=== PATIENT | male | born 1990 | race Caucasian/White ===

== ENCOUNTER 2024-12-31 11:58 | Emergency (ER) | payer SELFPAY ==
--- OUTSIDE RECORDS SUMMARY | 2024-12-30 18:12 | XMS_ITS | Encounter Summary ---
Author Organization [facility] Health Address [address] [place] [address] Care Team Providers Care Real Estate Agent Name Role Phone Provider, No Pcp Primary Care Provider Unavailab le Reason for Visit * Reason Comments SUICIDAL Pt arrives via EMS. EMS states [place] picked up. The pt states he wants to kill himself by cutting his wrist. The pt has a shuffled appearance Encounter Details Date Type Department Care Team (Late Contact Info) Description 12/30/2024 6:12 PM CDT - 12/31/2024 12:14 AM T Emergency [facility] EMERGENCY DEPARTMENT [address] [place] [phone] Maite De La Paz MD [address] [place] [address] [place] [address] Encounter for medication management; Tachycardia; Suicidal ideation; Drug use Discharge Disposition: Home or Self Care Social History Tobacco Use Types Packs/Day Years Used Date Smoking Tobacco: Every Day Cigarettes 1 0.1 Started: 12/2024 Smokeless Tobacco: Never Alcohol Use Standard Drinks/Week Comments Not Currently 0 (1 standard drink = 0.6 oz pur e alcohol) AUDIT-C Answer Date Recorded Q1: How often do you have a drink containing alc ohol? Monthly or less 12/18/2024 Q2: How many drinks containi ng alcohol do you have on a typical day when you are drinking? 1 or 2 12/18/2024 Q3: How often do you have si x or more drinks on one occasion? Less than monthly 12/18/2024 Overall Financial Resource Strain (CARDIA) Answe r Date Recorded How hard is it for you to pa y for the very basics like food, housing, medical care, and heating? Not hard at all 12/18/2024 PHQ-2 Answer Date Recorded Patient Health Questionnaire-2 Score 6 12/18/2024 [facility] - Occupational Stress Questionnaire Answer Date Recorded Do you feel stress - tense, restless, nervous, or anxious, or unable to sleep at night because your mind is troubled all the time - these days? Not at all 12/18/2024 Hunger Vital Sign Answer Date Recorded Within the past 12 months, y ou worried that your food would run out before you got the money to buy more. Never true 12/19/19 25 Within the past 12 months, t he food you bought just didn't last and you didn't have money to get more. Never true 12/18/2024 PRAPARE - Transportation Answer Date Re corded In the past 12 months, has l ack of transportation kept you from medical appointments or from getting medications? No 12/09 In the past 12 months, has l ack of transportation kept you from meetings, work, or from getting things needed for daily living? No 12/18/2024 Housing Stability Vital Sign Answer Lalo e Recorded In the last 12 months, was t here a time when you were not able to pay the mortgage or rent on time? No 12/18/2024 In the past 12 months, how m any times have you moved where you were living? 1 12/18/2024 At any time in the past 12 m [facility], were you homeless or living in a [facility] (including now)? Yes 12/18/2024 Sex and Gender Information Value Date Recorded Sex Assigned at Not on file Legal Sex Male 12:18 AM CDT Gender Identity Not on file Sexual Orientation Not on file documented as of this encounter Last Filed Vital Signs Vital Sign Reading Time Taken Comments Blood Pressure 115/90 12/30/2024 6:08 PM CDT Pulse 116 12/30/2024 6:57 PM CDT Temperature 36.6 C (97.9 F) 12/30/2024 6:57 PM CDT Respiratory Rate 18 12/30/2024 6:08 PM CDT Oxygen Saturation 99% 12/30/2024 6:08 PM CDT Inhaled Oxygen Concentration - - Weight 62.6 kg (138 lb) 12/30/2024 6:08 PM CDT Height 170.2 cm (5' 7) 12/30/2024 6:08 PM CDT Body Mass Index 21.61 12/30/2024 6:08 PM CDT documented in this encounter Functional Status * Is person deaf or have serious hearing difficulty? Answer Date of Assessment Author No 12/18/2024 9:00 AM CDT Daxa Wan RN * Is person blind or have serious difficulty seeing? Answer Date of Assessment Author No 12/18/2024 9:00 AM CDT Daxa Wan RN * Does person have serious difficulty walking/climbing stairs? Answer Date of Assessment Author No 12/18/2024 9:00 AM JINAT Daxa Wan RN * Does person have difficulty dressing/bathing? Answer Date of Assessment Author No 12/18/2024 9:00 AM JINAT Daxa Wan RN * Does person have difficulty doing errands alone? Answer Date of Assessment Author No 12/18/2024 9:00 AM CDT Daxa Wan RN documented as of this encounter Mental Status * Does person have difficulty concentrating/remembering/making decisions? Answer Entry Date Author No 12/18/2024 9:00 AM Daxa Schultz RN documented in this encounter Discharge Instructions * Discharge Instructions* Radha Grimaldo DO - 12/30/2024 9:47 PM CDT You were seen in the ER today for suicidal ideation. Please follow recommendations from social workfor [facility] availability. Please return to the ER if you are having any new or worsening symptoms that you were concerned for. documented in this encounter Medications at Time of Discharge ARIPiprazole (Abilify) 15 MG tabletIndications :Bipolar Mood Disorder Take 1 (one) tablet by mouth once daily Reasons: Manic-Depression 30 tablet 1 12/21/2024 4:29 PM CDT 12/22/2024 mirtazapine (Remeron) 15 MG tabletIndications :Depressed Mood Take 1 (one) tablet by mouth at bedtime Reasons: Lowered Mood 30 tablet 1 12/21/2024 4:29 PM CDT 12/21/2024 nicotine polacrilex (Nicorette) 2 MG gumIndications:Ni cotine Dependence Take 1 (one) Each by mouth every 2 hours as needed for Smoking Cessation Reasons: Nicotine Addiction 50 Each 1 12/21/2024 4:29 PM CDT 12/21/2024 rivaroxaban (Xarelto) 20 MG tabletIndications :Deep Vein Thrombosis Prophylaxis Take 1 (one) tablet by mouth daily with dinner Reasons: Treatment to Prevent Deep Vein Thrombosis 30 tablet 1 12/21/2024 4:29 PM CDT 12/21/2024 documented as of this encounter Progress Notes * Bala Roman MD - 12/30/2024 9:39 PM CDT ID: Gualberto Herrmann is a 34 year old male whom is with PMHx of blood clots and a past psychiatric history of Methamphetamine use disorder and Cannabis use disorder, moderate and reported Bipolar I disorder with depression who is admitted to the ED on 12/30/24 for SI. UDS was pos for Cocaine and Cannabinoids. Psychiatric Diagnoses: Unspecified depressive disorder Methamphetamine use disorder Cannabis use disorder Plan: Disposition/legal: There is no psychiatric contraindication to discharge. Legal status is voluntary. Psychiatric Medications: Scheduled Psych Meds: Continue home medications Psych PRNs we recommend while admitted at [facility]: For anxiety: Atarax 25 mg q6h prn Labs: None Precautions: None 5. Psychosocial needs: We greatly appreciate social work's support with [facility] resources , substance use resources and discharge plan. I have discussed this case with my attending physician, Dr. Castellanos, who agrees with the assessment and plan. Signed: Bala Roman MD 12/30/2024 9:39 PM documented in this encounter H&P Notes * Bala Roman MD - 12/30/2024 9:18 PM CDT [facility] Psychiatry History and Physical Name: Gualberto Herrmann Age: [age] year old Date of : 1990 Location: Emergency Department Reason for Consult: Suicidal Ideation with plan to cut his wrists Level of consult: One-time consult to assist in determining a diagnosis and to recommend an appropriate treatment plan. Chief Complaint: I feel really depressed for a few hours Sources: patient (reliable), chart HISTORY OF PRESENT ILLNESS: Gualberto Herrmann is a 34 year old White male, who is homeless, unemployed, and single with a reported past psychiatric history of Bipolar disorder, Cannabis Use Disorder, and Stimulant Use Disorder and a past medical history of deep venous thrombosis. Psychiatry was consulted for Suicidal Ideation with plan. On day of admission/in the ED; UDS +cannabis, +cocaine; EtOH neg. Vitals 116 tachycardia. Lab results are notable for BUN 28, BUN/creatinine 35. On interview, he states that he snorted cocaine a few hours ago, feeling really depressed for a fewhours, and suicidal ideation with a plan to cut his wrist. He has been loneliness, hiking for 4 years, visited most of the [facility], starting from [place]. He mostly likes [place] due to architectures. His sleep and appetite are good. Energy level is okay. According to him, he has had 5 psychiatric hospitalizations, and he is currently on Aripiprazole 5 mg and Fluoxetine 20 mg once daily. As records, he was last hospitalized with similar symptoms in [facility] between December 18 and 2024. When asked why he was discharged after 4 days of admission, he replied that he felt better, then he was discharged. He was discharged with Mirtazapine 15 mg and Aripiprazole 15 mg once daily. Before this hospitalization, he also applied to [facility] for admission on the same day. Patient endorsed snorting cocaine a few hours ago, feeling depressed for a few hours, and suicidal ideation with a plan to cut his wrist. Duringthe interview, he is calm and comfortable. He is alert, awake, and oriented to person, place, and date. He explains which place he likes most and why he likes it more with a smile and sometimes laughing. He states that he has no place to live and needs to stay in a good place where he can be safe. It gives the impression that he wants to live in a better and safer place than contemplating suicide, with his confirmation. He agreed that the high school social science teacher would find a [facility] place for him to stay. When asked what he would like to do after discharge, he replies that he wants to go to [place]. Denies anhedonia, sleep and appetite problems, low energy and guilty feelings. He has a history of DVT. He had 3 DVT episodes. First DVT episode was in left leg 5 years ago, second in each lung 3 years ago, and third in right arm 2 years ago. Outpatient Medication list: Medications[1] Past Psychiatric History: Previous Diagnosis: reported Bipolar disorder, Cannabis Use Disorder, and Stimulant Use Disorder (methamphetamine) Psychiatric Hospitalization: Most recent: Last hospitalization with similar symptoms in [facility] between December 18 and 2024. Reason: SI Number of Hospitalizations: 5, last discharge on Previous Suicide Attempts: 1 Most recent: once in back high school, probably 20 years ago Details: to cut wrist Number of attempts: 1 Outpatient Psychiatrist/Therapist: Denies Prior Medication Trials: Quetiapine at night, gets benefit for sleep. Haloperidol +allergy Social History: Living Situation: homeless, hiking for 4 years Marriage/ Relationship History: single Children:none Employment History: not employed, worked many years ago for 5 years in his 18 years old Educational History: some college Legal History: Denies History of Trauma? Denies Substance Use History: Tobacco: 1 ppd for 4 years EtOH: endorses sometimes, he states that he drank alcohol last month Illicit Drugs: cocaine, lastly snorted this evening a few hours ago; marijuana, lastly used a few days ago Family Psychiatric History: Suicide: as per him, mother's brother shot himself Past Medical History: Past Medical History[2] Family Medical History: Family History[3] Review of Systems: (positive in Bold) Constitutional: Did not voice fevers. Eyes: Did not voice visual loss Ears, nose, mouth, throat, and face: Did not voice hearing loss Respiratory: Did not voice acute cough Cardiovascular: Did not voice palpitations Gastrointestinal: Did not voice vomiting Genitourinary: Did not voice dysuria Integument/breast: Did not voice rash Musculoskeletal: Did not voice muscle weakness Neurological: Did not voice headaches PHYSICAL EXAM: Vitals: Patient Vitals for the past 6 hrs: Temp Pulse Resp BP 12/30/24 1857 97.9 ??F (36.6 ??C) (!) 116 -- -- 12/30/24 1808 (!) 100.3 ??F (37.9 ??C) (!) 145 18 115/90 General appearance: alert, cooperative, no distress Head: Normocephalic, without obvious abnormality, atraumatic Neck: No masses, no thyromegaly, normal range of motion Extremities: extremities normal, atraumatic, no cyanosis or edema Skin: Skin color, texture, turgor normal. No rashes or lesions Cranial Nerves: I have determined that a complete Cranial Nerve exam is indicated? No Mental Status Exam: Appearance: White male, appears stated age, average build, skin sunburn Eye Contact: good Behavior: Pleasant and cooperative Speech: Normal rate and prosody Language: Normal, no delays Psychomotor: no agitation and no retardation and no agitation and no retardation Mood: depressed Affect: full range, smiles and sometimes laughes Thought Process: linear and logical, associations intact Thought Content: denies suicidal ideation, denies homicidal ideation and does not endorse delusional content Perception: denies hallucinations, was not reacting to internal stimuli Fund of Knowledge: Below average Insight: fair Judgment: good Cognitive Functions: Cognition: oriented to person, place and time Concentration: does attend to the interview Memory: recent and remote memory intact Gait: unable to assess, patient sitting MSK: Normal muscle tone Data Review: Labs: TFT: Recent Labs Component Name 12/20/24 0637 TSH 2.156 A1c: Recent Labs Component Name 12/20/24 0637 HGBA1C 5.4 EAG 108 Lipid: Recent Labs Component Name 12/20/24 0637 CHOL 179 TRIG 52 HDL 59 LDLCALC 110 BAL: Recent Labs Component Name 12/30/24 1843 ETOH <10 ETHANOLCALC <0.010 ASSESSMENT: Gualberto Herrmann is a 34 year old White male, who is homeless, unemployed, and single with a reported past psychiatric history of Bipolar disorder, Cannabis Use Disorder, and Stimulant Use Disorder and a past medical history of deep venous thrombosis who presented on 12/30/2024 with suicidal ideationwith plan. BAL negative, UDS + Cannabinoids, + Cocaine. Based on our clinical presentation, exam findings, review of chart it appears that patient has ongoing cocaine and cannabis use disorders. According to him, he has had 5 psychiatric hospitalizations,and he is currently on Aripiprazole 5 mg and Fluoxetine 20 mg once daily. As records, he was last hospitalized with similar symptoms in [facility] between December 18 and 2024. When asked why he was discharged after 4 days of admission, he replied that he felt better, then he was discharged. He was discharged with Mirtazapine 15 mg and Aripiprazole 15 mg once daily. Before this hospitalization, he also applied to [facility] for admission on the same day. Patient endorsed snorting cocaine a few hours ago, feeling depressed for a few hours, and suicidal ideation with a plan to cut his wrist. During the interview, he is calm and comfortable. He is alert, awake, and oriented to person, place, and date. He explains which place he likes most and why he likes it more with a smile and sometimes laughing. He states that he has no place to live and needs to stayin a good place where he can be safe. It gives the impression that he wants to live in a better andsafer place than contemplating suicide, with his confirmation. He agreed that the high school social science teacher would find a [facility] place for him to stay. When asked what he would like to do after discharge, he replies that he wants to go to [place]. Denies anhedonia, sleep and appetite problems, low energy and guilty feelings. His social history, including homelessness, no social support, and less education, is also likely contributing to the severity of his substance use as well. The recommendations and plan is as follows: Lethality: Short term risk of suicide- low Acute Risk factors: poor coping strategies and current substance abuse Chronic Risk factors:male gender and homelessness Protective factors: forward thinking, hopefulness, help seeking, resources/ability to seek out care, no active symptoms of psychosis, and no active symptoms of robert Short term risk of harm to others- low Acute Risk factors: Physical capability Chronic Risk factors: none Protective factors: no current aggression Overall RISK: low Based on review of the [place] Screening ,review of the medical record including nursing and executive secretary social welfare documentation, in my clinical judgment, the patient's suicidality has decreased Clinical interventions being applied to mitigate the suicidal risk no precautions needed I have seen and reviewed the available and relevant vital signs, labs, imaging, procedures, EKGs, allergies, and medications. Diagnosis: F14.14 (Cocaine abuse with cocaine-induced mood disorder) mild exacerbation F12.20 Cannabis Use Disorder, moderate PLAN: Psychiatric: 1. Cannabis Use Disorder, moderate and Stimulant Use Disorder, moderate, Cocaine abuse with cocaine-induced mood disorder Medical: Defer to primary, History of deep venous thrombosis, currently on Rivaroxaban 20 mg Psychosocial Needs: SW to kindly assist with discharge planning, [facility] resources, and substance use resources. Strengths/Limitations: Patient's Strengths and Assets: Help-seeking and Willingness to pursue recommend treatment modalities Patient's Limitations and Liabilities: Homelessness, Substance use, and Poor Coping Strategies Disposition: Patient does not meet criteria for involuntary inpatient psychiatric admission at this time Precautions: none Patient was discussed with attending physician Dr. Castellanos. Bala Roman MD [facility], Department of Psychiatry 12/30/24 [1] Current Outpatient Medications: ARIPiprazole (Abilify) 15 MG tablet, Take 1 (one) tablet by mouth once daily Reasons: Manic-Depression, Disp: 30 tablet, Rfl: 1 mirtazapine (Remeron) 15 MG tablet, Take 1 (one) tablet by mouth at bedtime Reasons: Lowered Mood, Disp: 30 tablet, Rfl: 1 nicotine polacrilex (Nicorette) 2 MG gum, Take 1 (one) Each by mouth every 2 hours as needed for Smoking Cessation Reasons: Nicotine Addiction, Disp: 50 Each, Rfl: 1 rivaroxaban (Xarelto) 20 MG tablet, Take 1 (one) tablet by mouth daily with dinner Reasons: Treatment to Prevent Deep Vein Thrombosis, Disp: 30 tablet, Rfl: 1 [2] No past medical history on file. [3] No family history on file. Cosigned by Bk Castellanos MD at 12/31/2024 7:13 AM CDT Associated attestation - Bk Castellanos MD - 12/31/2024 7:13 AM CDT I did not see the patient but I have discussed the case/patient with the resident physician, Dr. Roman, and I agree with their assessment and plan as outlined in their note. documented in this encounter ED Notes * Rachelle Oswald RN - 12/30/2024 11:53 PM CDT Pt is awake and alert GCS 15. Breathing is regular and nonlabored. Skin is warm and dry. Gait is steady with no assistance. Proper discharge clothing. Discharge teaching successful as evidence by no further questions/concerns/needs. Pt ready for discharge. * Maite De La Paz MD - 12/30/2024 9:54 PM CDT For this patient encounter, I reviewed the Resident documentation, procedures (if done), treatment plan, and medical decision making; and I had [id number] time with this patient. I have conducted an independent evaluation of this patient including a focused history of homeless depression states he is from [place] but it is walking across the state going [place]. States he comes in with an SI. He was just discharged from this hospital we believe in [place] in the past week.Prior to that he was also admitted in [place].. No other direct complaints. and a physical exam revealing he is actually very tearful good eye contact. Does not appear depressed cooperative little bit of sunburn but otherwise alert and oriented and cooperative. Gait is stable - which are in concordance with the Resident documentation except as otherwise noted. ED Course as of 12/30/242156Dec 30, 2024 184 Patient informed me that his pulse was 145 so they ordered an EKG. [TS] 1951 WBC(!): 11.6 Elevated white blood count, could be nonspecific but will continue to evaluate for clinical relevance [TS] 1952 Cocaine Metabolite Urine(!): Positive Negative for methamphetamines but positive for cocaine. [TS] 1952 Patient negative for alcohol, COVID, syphilis findings [TS] 1953 I rechecked on the patient. They are resting comfortably. I informed the patient that the substance a is noted today was cocaine and out meth. I updated the patient on all current diagnostic results. Patient is still endorsing SI. I reassessed the patient's medical condition, comfort, and provided a care update. All questions were addressed. [TS] 2100 I spoke with psych. Psych concerned that patient was recently seen at outside hospital for similar symptoms. I informed psych the patient is still endorsing suicidal ideation with plan. They agreed to evaluate patient [TS] 2151 I spoke with psych, they state that the patient should be discharge with [facility] resources. [TS] ED Course User Index [TS] Radha Grimaldo, DO Clinical Impressions as of 12/30/242156 Encounter for medication management Tachycardia Suicidal ideation Drug use Maite De La Paz MD * Jamin Harris RN - 12/30/2024 6:12 PM CDT Bed: C08 Expected date: Expected time: Means of arrival: Ambulance Comments: documented in this encounter Plan of Treatment Pending Results Name Type Priority Associated Diagnoses Date /Time EKG 12-LEAD ECG STAT Encounter for medication management 12/30/2024 6:39 PM CDT documented as of this encounter Procedures Procedure Name Priority Date/Time Associated Diagnosis Comments URINE DRUG SCREEN IMMUNOASSAY STAT 12/30/2024 6:44 PM CDT SARS-COV-2 (COVID-19) RAPID STAT 12/30/2024 6:43 PM CDT SYPHILIS ANTIBODY CASCADING REFLEX STAT 12/30/2024 6:43 PM CDT CBC W AUTO DIFFERENTIAL STAT 12/30/2024 6:43 PM CDT COMPREHENSIVE METABOLIC PANEL STAT 12/30/2024 6:43 PM CDT VITAMIN B12 MISTI 12/30/2024 6:43 PM CDT ALCOHOL ETHYL BLOOD STAT 12/30/2024 6 :43 PM CDT EKG 12-LEAD STAT 12/30/2024 6:39 PM CDT Encounter for medication management documented in this encounter Results * (ABNORMAL) URINE DRUG SCREEN IMMUNOASSAY (12/30/2024 6:44 PM CDT) Amphetamines Screen Urine Negative Negative : < 1000 ng/mL 12/30/2024 7:14 PM T [facility] Barbiturates Screen Urine Negative Negative : < 200 ng/mL 12/30/2024 7:14 PM [facility] Benzodiazepine Screen Urine Negative Negative : < 200 ng/mL 12/30/2024 7:14 PM [facility] Opiates Urine Negative Negative : < 300 ng/mL 12/30/2024 7:14 PM [facility] Cocaine Metabolites Urine Positive(A) Negative : < 300 ng/mL 12/30/2024 7:14 PM [facility] Comment: Positive urine cocaine metabolites screening results should be confirmed by another generally accepted non-immunological method such as gas chromatography or mass spectrometry. Phencyclidine Screen Urine Negative Negative : < 25 ng/ml 12/30/2024 7:14 PM [facility] Cannabinoids Screen Urine Positive(A) Negative : <50 ng/mL 12/30/2024 7:14 PM [facility] Comment:Positive urine canna binoids (THC) screening results should be confirmed by another generally accepted non-immunological method such as gas chromatography or mass spectrometry. Methadone Screen Urine Negative Negative : < 300 ng/mL 12/30/2024 7:14 PM [facility] Fentanyl Screen Urine Negative Negative : <1.5 ng/mL 12/30/2024 7:14 PM [facility] Urine URINE / Unknown Collection / Unknown 12/30/2024 6:44 PM CDT 12/30/2024 6:48 PM CDT [facility] - 12/30/2024 7:14 PM CDT The Urine Toxicology Screening Panel does not screen for Propoxyphene, Meprobamate, Carisoprodol, Trazodone, [id number] medications and/or volatiles (Acetone, Isopropanol, Methanol or Ethylene Glycol). Ethanol, Salicylate, Acetaminophen, Tricyclic Antidepressants and several therapeutic drugs may be individually assayed in serum or plasma specimen. Toxicology testing by the [facility] is an aid to medical diagnosis and treatment of patients. No documented chain of custody was maintained. Results are intended to be used for clinical purposes only. Sharon Zavala APRN-[facility] - URINE CHEMISTR Y ORDERABLES Final Result Performing Organization Address City/[facility]/ZIP Co de Phone Number [address] [address], [facility] [phone] * SARS-COV-2 (COVID-19) RAPID (12/30/2024 6:43 PM CDT) COVID-19 PCR Not detected Not detected 12/31/19 7:31 PM CDT [facility] Microbiology SPECIMEN FROM NASOPHARYNGEAL STRUCTURE / Unknown Collection / Unknown 12/30/2024 6:43 PM CDT 12/30/2024 6:48 PM CDT [facility] - 12/30/2024 7:31 PM CDT The CepQuNano Xpert Xpress SARS-COV-2 has been authorized by the Food and Drug Administration (FDA) under an Emergency Use Authorization (EUA). This test has been validated in accordance with the FDA's guidance document Policy for Diagnostic Testing in Laboratories Certified to perform High Complexity Testing under CLIA prior to Emergency Use Authorization for Coronavirus Disease-2019 during the Public Health Emergency issued on July 09, 2019. FDA independent review of this validation is pending. This test is only authorized for the duration of the time the declaration that circumstances exist justifying the authorization of emergency use of in vitro diagnostic tests for detection of SARS-COV-2 virus and/or diagnosis of COVID-19 infection under 564(b) (1) of the Act. 21 U.S.C. 360bbb-3 (b) (1), unless the authorization is terminated or revoked sooner. Fact Sheets for this EUA assay are available upon request. Sharon Zavala DENTURE FINISHER-[facility] - MICROBIOLOGY O RDERABLES Final Result Performing Organization Address City/[facility]/ZIP Co de Phone Number [address] [address], [facility] [phone] * VITAMIN B12 (12/30/2024 6:43 PM CDT) Pathologist [facility] Vitamin B12 603 213 - 816 pg/mL 12/30/2024 10:44 PM CDT [facility] Blood BLOOD SPECIMEN / Unknown Venipuncture / Unknown 12/30/2024 6:43 PM CDT 12/30/2024 6:48 PM CDT [facility] - CHEMISTRY ORDE RABLES Final Result [address] [address], [facility] [phone] * SYPHILIS ANTIBODY CASCADING REFLEX (12/30/2024 6:43 PM CDT) [facility] Treponema pallidum Antibody Non-react audrey Non-react audrey 12/30/2024 7:33 PM CDT [facility] Comment: No Laboratory evidence of syphilis infection. Note: Circulating antibodies may be low or undetectable in early infection. If recent exposure is suspected, re-draw sample in 2-4 weeks and repeat testing. Blood BLOOD SPECIMEN / Unknown Venipuncture / Unknown 12/30/2024 6:43 PM CDT 12/30/2024 6:48 PM CDT [facility] - SEROLOGY ORDER JOSE Final Result [address] [address], [facility] [phone] * ALCOHOL ETHYL BLOOD (12/30/2024 6:43 PM CDT) Pathologist [facility] Ethanol (mg/dL) <10 <10 mg/dL 7:18 PM CDT [facility] Ethanol Calculated (g/dL) <0.010 <=0.010 g/dL 12/30/2024 7:18 PM [facility] Blood BLOOD SPECIMEN / Unknown Venipuncture / Unknown 12/30/2024 6:43 PM CDT 12/30/2024 6:48 PM CDT [facility] - 12/30/2024 7:18 PM CDT Ethanol Interp <10: None Detected. Depression of BALL RACKER: >100 mg/dl Potentially Critical: >250 mg/dl Potentially Fatal >400 mg/dl Ethanol in the patient's blood will contribute to the osmolar gap. Ethanol's contribution to the osmolar gap can be estimated by dividing the concentration of ethanol in mg/dL by 4.6. This test is for clinical use only and does not equal a CED for legal purposes. us Sharon Zavala DENTURE FINISHER-[facility] - CHEMISTRY COREY RODRIGUEZ Final Result [facility] [address] [place] [address], [facility] [phone] * (ABNORMAL) COMPREHENSIVE METABOLIC PANEL (12/30/2024 6:43 PM CDT) BUN 28(H) 7 - 26 mg/dL 12/30/2024 7:18 PM [facility] Creatinine 0.79 0.71 - 1.16 mg/dL 12/30/2024 7:18 PM [facility] Sodium 140 136 - 145 mmol/L 12/30/2024 7:18 PM [facility] Potassium 3.8 3.5 - 4.5 mmol/L 12/30/2024 7:18 PM [facility] Chloride 105 98 - 107 mmol/L 12/30/2024 7:18 PM [facility] CO2 22 22 - 29 mmol/L 12/30/2024 7:18 PM [facility] Glucose 125(H) 70 - 99 mg/dL 12/30/2024 7:18 PM [facility] Calcium 10.2 8.4 - 10.2 mg/dL 12/30/2024 7:18 PM [facility] Protein Total 8.2 6.0 - 8.3 g/dL 12/30/2024 7:18 PM [facility] Albumin 5.1(H) 3.4 - 5.0 g/dL 12/30/2024 7:18 PM [facility] Bilirubin Total 0.4 0.2 - 1.2 mg/dL 12/30/2024 7:18 PM [facility] Alkaline Phosphatase 56 40 - 150 U/L 12/30/2024 7:18 PM [facility] ALT 39 5 - 55 U/L 12/30/2024 7:18 PM [facility] AST 72(H) 5 - 34 U/L 12/30/2024 7:18 PM [facility] Anion Gap 13 6 - 16 12/30/2024 7:18 PM [facility] BUN/Creatinine Ratio 35(H) 7 - 23 12/30/2024 7:18 PM [facility] Osmolality Calculated 297(H) 275 - 295 mOsm/kg 12/30/2024 7:18 PM [facility] Albumin/Globulin Ratio 1.6 1.1 - 2.3 12/30/2024 7:18 PM [facility] eGFR by CKD-EPI >90 >=90 mL/min/1.7 3 m2 12/30/2024 7:18 PM [facility] Comment:Estimated Glomerular Filtration Rate (eGFR) calculated using the CKD-EPI Creatinine Equation (2020), per the National Kidney Foundation and [place] Society of Nephrology recommendations. Blood BLOOD SPECIMEN / Unknown Venipuncture / Unknown 12/30/2024 6:43 PM CDT 12/30/2024 6:48 PM CDT us Sharon Zavala DENTURE FINISHER[facility] - CHEMISTRY ORDE MICHAEL Final Result [address] [address], [facility] [phone] * (ABNORMAL) CBC W AUTO DIFFERENTIAL (12/30/2024 6:43 PM CDT) WBC 11.6(H) 4.0 - 10.7 x10E9/L 12/30/2024 7:37 PM [facility] RBC Count 5.04 4.30 - 5.80 x10E12/L 12/30/2024 7:37 PM [facility] Hemoglobin 15.2 13.3 - 17.5 g/dL 12/30/2024 7:37 PM [facility] Hematocrit 43.3 38.7 - 51.1 % 12/30/2024 7:37 PM [facility] MCV 85.9 80.0 - 98.0 fL 12/30/2024 7:37 PM [facility] MCH 30.2 26.7 - 33.6 pg 12/30/2024 7:37 PM [facility] MCHC 35.1 31.7 - 36.3 g/dL 12/30/2024 7:37 PM [facility] RDW-CV 14.1 11.3 - 14.8 % 12/30/2024 7:37 PM [facility] Platelet Count 293 150 - 420 x10E9/L 12/30/2024 7:37 PM [facility] MPV 10.9 7.8 - 11.4 fL 12/30/2024 7:37 PM [facility] Neutrophil % 79.8(H) 41.0 - 74.0 % 12/30/2024 7:37 PM [facility] Lymphocyte % 11.0(L) 17.0 - 47.0 % 12/30/2024 7:37 PM [facility] Monocyte % 8.1 3.0 - 11.0 % 12/30/2024 7:37 PM [facility] Eosinophil % 0.7 0.0 - 7.0 % 12/30/2024 7:37 PM [facility] Basophil % 0.2 0.0 - 1.6 % 12/30/2024 7:37 PM [facility] Immature Granulocytes % 0.2 0.0 - 1.0 % 12/30/2024 7:37 PM [facility] Neutrophil Absolute 9.29(H) 1.60 - 7.50 x10E9/L 12/30/2024 7:37 PM [facility] Lymphocyte Absolute 1.28 1.00 - 4.40 x10E9/L 12/30/2024 7:37 PM CDT [facility] Monocyte Absolute 0.94 0.15 - 1.00 x10E9/L 12/30/2024 7:37 PM CDT [facility] Eosinophil Absolute 0.08 0.00 - 0.60 x10E9/L 12/30/2024 7:37 PM CDT [facility] Basophil Absolute 0.02 0.00 - 0.13 x10E9/L 12/30/2024 7:37 PM CDT [facility] Blood BLOOD SPECIMEN / Unknown Venipuncture / Unknown 12/30/2024 6:43 PM CDT 12/30/2024 6:48 PM CDT Sharon Zavala DENTURE FINISHER-[facility] - HEMATOLOGY ORD ERABLES Final Result Performing Organization Address City/State/[facility] Co de Phone Number [address] [address], [facility] [phone] documented in this encounter Visit Diagnoses Diagnosis Encounter for medication management Tachycardia Tachycardia, unspecified Suicidal ideation Drug use Other, mixed, or unspecified nondependent drug abuse, unspecified documented in this encounter Additional Health Concerns Infection Onset Date Last Indicated Resolved Time COVID-19 Under Investigation 12/30/2024 12/30/2024 12/30/2024 7:31 PM CDT documented as of this encounter Care Teams Real Estate Agent Relationship Specialty Start Date End Date Provider, No Pcp PCP - General 12/18/24 documented as of this encounter
[2024-12-31 12:02] VITALS: BP 140/88; PULSE 105; RESP 16; TEMP 36.7; O2SAT 98
--- NOTE | 2024-12-31 12:09 | ECG_ITS ---
Test Date: 2024-12-31 12:21:08 Measurements Intervals [place] Rate: 83 P: 52 SD: 171 QRS: 58 QRSD: 101 T: 65 QT: 349 QTc: 411 Interpretive Statements SINUS RHYTHM INCOMPLETE RIGHT BUNDLE BRANCH BLOCK PEAKED T WAVES- CONSIDER HYPERKALEMIA BASELINE ARTIFACT- I, II, III, AVR, AVL, AVF ABNORMAL ECG No previous ECG available for comparison Electronically Signed On 12-31-2024 17:05:25 CDT by Christian Nash D.O.
[2024-12-31 12:22] LABS: Add Urine Microscopic? YES; Appearance Urine Clear (Clear); Glucose Urine UA Negative (Negative); Leukocyte Esterase Ur Negative LEU/UL (Negative); Nitrate Urine Negative (Negative); Specific Grav Ur 1.038 (1.001-1.035)
[2024-12-31 12:36] LABS: Hematocrit 44.8 % (42.0-52.0); Hemoglobin 14.5 g/dL (14.0-18.0); Immature Granulocyte Percent A 0.3 % (0-0.5); Lymphocytes Absolute Auto 1.82 K/mm3 (0.9-3.2); Mean Corpuscular HGB Conc 32.4 g/dl (32-36); Mean Corpuscular Hemoglobin 28.8 pg (26-34); Mean Corpuscular Volume 88.9 fl (80-100); Nucleated Red Blood Cells Absolute Auto 0.000 K/mm3 (0.0-0.012); Nucleated Red Blood Cells Perc 0.0 % (0.0-0.2); Platelet Count Result 297 k/mm3 (150-375); Red Blood Count 5.04 M/mm3 (4.6-6.20); White Blood Count 9.2 K/mm3 (4.5-10.0)
[2024-12-31 12:41] LABS: Cannabinoid Screen Urine Positive (Negative)
[2024-12-31 12:58] LABS: Acetaminophen < 10 ug/mL (10-30); Salicylate < 1.0 mg/dL (2-20)
--- OUTSIDE RECORDS SUMMARY | 2024-12-31 13:09 | XMS_ITS | Clinical Summary ---
Author Organization [facility] Address [address] [place] [address] Phone Care Team Providers Care Citrix Engineer Name Role Phone Provider, None Primary Care Provider Unavailabl e Allergies Active Allergy Reactions Criticality Noted Date Comments Haloperidol Other (see Comments) 07/01/2024 Looses certain motor movements Medications hydrOXYzine (ATARAX) 50 MG TabletIndication s:Anxiety Take 1 Tablet by mouth 3 times daily as needed for Anxiety. Indications: Feeling Anxious 90 Tablet 5 Active rivaroxaban (Xarelto) 20 MG TabletIndication s:Atrial Fibrillation Take 1 Tablet by mouth daily (with dinner). Take with food. Indications: Atrial Fibrillation 90 Tablet 5 Active FLUoxetine (PROzac) 10 MG CapsuleIndicatio ns:Depression Take 3 Capsules by mouth daily. Indications: Depression 90 Capsule 5 Active traZODone (DESYREL) 50 MG TabletIndication s:Insomnia Take 1 Tablet by mouth nightly as needed for Sleep. Indications: Trouble Sleeping 30 Tablet 5 Active ARIPiprazole (Abilify) 5 MG TabletIndication s:Major Depressive Disorder Take 1 Tablet by mouth daily. Indications: Major Depressive Disorder 30 Tablet 5 Active Social History Tobacco Use Types Packs/Day Years Used Date Smoking Tobacco: Every Day Cigarettes Smokeless Tobacco: Never Tobacco Cessation:Ready to Q uit: Not Asked; Counseling Given: Not Answered Alcohol Use Standard Drinks/Week Comments Not Currently 0 (1 standard drink = 0.6 oz pur e alcohol) occassionally [facility] Utilities Answer Date Recorded In the past 12 months has [facility] [employer], gas, oil, or water [employer] threatened to shut off services in your home? No 07/01/2024 Social Connection and Isolation Panel Answer Date Recorded In a typical week, how many times do you talk on the phone with family, friends, or neighbors? Patient unable to answer 07/01/2024 How often do you get togethe r with friends or relatives? Patient unable to answer 07/01/2024 How often do you attend chur ch or episcopal services? More than 4 times per year 07/01/2024 Do you belong to any clubs o r organizations such as jain groups, unions, fraternal or athletic groups, or school groups? No 07/01/2024 How often do you attend meet ings of the clubs or organizations you belong to? Never 07/01/2024 Are you , , di vorced, , never , or living with a partner? Never 07/01/2024 AUDIT-C Answer Date Recorded Q1: How often do you have a drink containing alc ohol? Monthly or less 07/01/2024 Q2: How many drinks containi ng alcohol do you have on a typical day when you are drinking? 1 or 2 07/01/2024 Q3: How often do you have si x or more drinks on one occasion? Never 07/01/2024 Overall Financial Resource Strain (CARDIA) Answe r Date Recorded How hard is it for you to pa y for the very basics like food, housing, medical care, and heating? Not very hard 07/01/2024 [facility] - Occupational Stress Questionnaire Answer Date Recorded Do you feel stress - tense, restless, nervous, or anxious, or unable to sleep at night because your mind is troubled all the time - these days? Only a little 07/01/2024 Exercise Vital Sign Answer Date Recorde d On average, how many days pe r week do you engage in moderate to strenuous exercise (like a brisk walk)? 7 days 07/01/2024 On average, how many minutes do you engage in exercise at this level? 150+ min 07/01/2024 Hunger Vital Sign Answer Date Recorded Within the past 12 months, y ou worried that your food would run out before you got the money to buy more. Never true 07/01/19 25 Within the past 12 months, t he food you bought just didn't last and you didn't have money to get more. Never true 07/01/2024 PRAPARE - Transportation Answer Date Re corded In the past 12 months, has l ack of transportation kept you from medical appointments or from getting medications? No 06/12 In the past 12 months, has l ack of transportation kept you from meetings, work, or from getting things needed for daily living? No 07/01/2024 Housing Stability Vital Sign Answer Lalo e Recorded In the last 12 months, was t here a time when you were not able to pay the mortgage or rent on time? No 07/01/2024 In the past 12 months, how m any times have you moved where you were living? 1 07/01/2024 At any time in the past 12 m [facility], were you homeless or living in a long term (including now)? Yes 07/01/2024 Sexually Active Control Partners Comments Yes Sex and Gender Information Value Date Recorded Sex Assigned at Not on file Legal Sex Male 7:17 AM POLITICAL GEOGRAPHER Gender Identity Not on file Sexual Orientation Not on file Last Filed Vital Signs Vital Sign Reading Time Taken Comments Blood Pressure 114/70 07/06/2024 8:00 AM POLITICAL GEOGRAPHER Pulse 60 07/06/2024 8:00 AM POLITICAL GEOGRAPHER Temperature 36.4 C (97.5 F) 07/06/2024 8:00 AM POLITICAL GEOGRAPHER Respiratory Rate 16 07/06/2024 8:00 AM POLITICAL GEOGRAPHER Oxygen Saturation 99% 07/06/2024 8:00 AM POLITICAL GEOGRAPHER Inhaled Oxygen Concentration - - Weight 57.2 kg (126 lb) 07/01/2024 3:29 PM POLITICAL GEOGRAPHER Height 170.2 cm (5' 7) 07/01/2024 3:29 PM POLITICAL GEOGRAPHER Body Mass Index 19.73 07/01/2024 3:29 PM POLITICAL GEOGRAPHER Plan of Treatment Not on file Insurance MEDICAID OUT OF STATE COMMERCIAL GENERIC Advance Directives * Full Code (Latest Code Status on File) Date Activated Date Inactivated Comments 07/01/2024 3:33 PM CPR-Full Treat ment: FULL ARREST: Attempt Resuscitation/CPR wit intubation and mechanical ventilation. PRE-ARREST: Use entire range of life support measures to stabilize the patient. Care Teams Citrix Engineer Relationship Specialty Start Date End Date Provider, None [place] PCP - General 07/01/24
--- OUTSIDE RECORDS SUMMARY | 2024-12-31 13:09 | XMS_ITS | Clinical Summary ---
Author Organization [facility] [employer] Address [address] [place] [address] Care Team Providers Care Reclamation Worker Name Role Phone Provider, No Pcp Primary Care Provider Unavailab le Source Comments [facility] [employer],non-owned Affiliates and Associated Physician Practices is amultiple site organization consisting of ambulatory clinics and hospital sitesin [place], [place], [place] and [place]. This disclosure is being madepursuant to the Care Everywhere program and may not contain all information available regarding this patient. Last updated 18.[facility] [employer] Allergies Active Allergy Reactions Criticality Noted Date Comments Haloperidol Anaphylaxis High 12/18/2024 Medications * This document contains information received from the source organization and may not represent a complete record from that organization. * Be aware that medications may not be up to date on this document. Alwaysverify current medications with the patient. rivaroxaban (Xarelto) 20 MG tabletIndicatio ns:Deep Vein Thrombosis Prophylaxis Take 1 (one) tablet by mouth daily with dinner Reasons: Treatment to Prevent Deep Vein Thrombosis 30 tablet 1 12/21/2024 4:29 PM CDT 5 Active mirtazapine (Remeron) 15 MG tabletIndicatio ns:Depressed Mood Take 1 (one) tablet by mouth at bedtime Reasons: Lowered Mood 30 tablet 1 12/21/2024 4:29 PM CDT 5 Active nicotine polacrilex (Nicorette) 2 MG gumIndications: Nicotine Dependence Take 1 (one) Each by mouth every 2 hours as needed for Smoking Cessation Reasons: Nicotine Addiction 50 Each 1 12/21/2024 4:29 PM CDT 5 Active ARIPiprazole (Abilify) 15 MG tabletIndicatio ns:Bipolar Mood Disorder Take 1 (one) tablet by mouth once daily Reasons: Manic-Depressi on 30 tablet 1 12/21/2024 4:29 PM CDT Active ARIPiprazole (Abilify) 5 MG tablet Take 1 (one) tablet by mouth once daily 12/23/19 25 Discontin ued(Dose Adjustmen t) FLUoxetine (PROzac) 20 MG capsule Take 1 (one) capsule by mouth once daily 12/23/19 25 Discontin ued(Clini alana Decision) rivaroxaban (Xarelto) 20 MG tablet Take 1 (one) tablet by mouth daily with food 12/23/19 Discontin ued(List Clean-Up) Active Problems Problem Noted Date Diagnosed Date Methamphetamine use disorder, moderate Cannabis use disorder, moderate, dependence 12/09 Bipolar I disorder with depression 12/18/2024 Encounters * This document contains information received from the source organization and may not represent a complete record from that organization. Date Type Department Care Team Description 12/30/2024 6:12 PM CDT - 12/31/2024 12:14 AM CDT Emergency [facility] EMERGENCY DEPARTMENT [address] [place] [address] Maite De La Paz MD Encounter for medication management; Tachycardia; Suicidal ideation; Drug use Discharge Disposition: Home or Self Care 12/30/2024 Travel 12/18/2024 12:33 AM CDT - 12/18/2024 8:02 AM CDT Emergency ER at [address] [address] Dima Parker MD Suicidal ideation; Severe episode of recurrent major depressive disorder, without psychotic features (HCC) Discharge Disposition: Psychiatric Hospital or Unit 12/18/2024 Travel from Last 3 Months Social History Tobacco Use Types Packs/Day Years Used Date Smoking Tobacco: Every Day Cigarettes 1 0.1 Started: 12/2024 Smokeless Tobacco: Never Tobacco Cessation:Ready to Q [...] Recorded Patient Health Questionnaire-2 Score 6 12/18/2024 [facility] - Occupational Stress Questionnaire Answer Date Recorded [...] any time in the past [address] [facility], were you homeless or living in a group home (including now)? Yes 12/18/2024 Sex and Gender [...] Mass Index 21.61 12/30/2024 6:08 PM CDT Plan of Treatment Health Maintenance Due Date Last Done Comments HIV SCREENING 08/04/2003 HEPATITIS C SCREENING 07/30/2006 DTAP/TDAP/TD VACCINES (1 - Tdap) 08/04/2007 HEPATITIS B VACCINE (1 of 3 - 19+ 3-dose series) 08/04/2007 PNEUMOCOCCAL VACCINE (1 of 2 - PCV) 08/04/2007 HPV VACCINE (1 - 3-dose SCDM series) 08/04/2015 COVID-19 VACCINE (1 - 2023-2 5 season) 2024 INFLUENZA VACCINE (#1) 2025 ZOSTER VACCINE (1 of 2) 2038 HIB VACCINE Aged Out No longer eligi ble based on patient's age to complete this topic MENINGOCOCCAL (Group B) VACC INE SHARED DECISION-MAKING Aged Out No longer eligibl e based on patient's age to complete this topic MENINGOCOCCAL GROUPS A/C/Y/W VACCINE Aged Out No longer eligible b ased on patient's age to complete this topic Procedures Procedure Name Priority Date/Time Associated Diagnosis Comments URINE DRUG SCREEN IMMUNOASSAY STAT 12/30/2024 6:44 PM CDT VITAMIN B12 MISTI 12/30/2024 6:43 PM CDT SYPHILIS ANTIBODY CASCADING REFLEX STAT 12/30/2024 6:43 PM CDT ALCOHOL ETHYL BLOOD STAT 12/30/2024 6 :43 PM CDT COMPREHENSIVE METABOLIC PANEL STAT 12/30/2024 6:43 PM CDT CBC W AUTO DIFFERENTIAL STAT 12/30/2024 6:43 PM CDT SARS-COV-2 (COVID-19) RAPID STAT 12/30/2024 6:43 PM CDT EKG 12-LEAD STAT 12/30/2024 6:39 PM CDT Encounter for medication management TSH REFLEX FREE T4 Routine 12/20/2024 6: 37 AM CDT Severe recurrent major depression without psychotic features (HCC) LIPID PROFILE Routine 12/20/2024 6:37 AM CDT Severe recurrent major depression without psychotic features (HCC) HEMOGLOBIN A1C Routine 12/20/2024 6:37 AM CDT Severe recurrent major depression without psychotic features (HCC) COMPREHENSIVE METABOLIC PANEL Routine 12/20/2024 6:37 AM CDT Severe recurrent major depression without psychotic features (HCC) CBC W AUTO DIFFERENTIAL Routine 12/20/2024 6:37 AM CDT Severe recurrent major depression without psychotic features (HCC) URINE DRUG SCREEN IMMUNOASSAY Routine 12/18/2024 9:40 AM CDT Severe recurrent major depression without psychotic features (HCC) from Last 3 Months Results * (ABNORMAL) URINE DRUG SCREEN IMMUNOASSAY (12/30/2024 6:44 PM CDT) Only the most recent of2 resultswithin the time period is included. [facility] Amphetamines Screen Urine Negative Negative : < 1000 ng/mL 12/30/2024 7:14 PM CDT [facility] Barbiturates Screen Urine Negative Negative : < 200 ng/mL 12/30/2024 7:14 PM CDT [facility] Benzodiazepine Screen Urine Negative Negative : < 200 ng/mL 12/30/2024 7:14 PM CDT [facility] Opiates Urine Negative Negative : < 300 ng/mL 12/30/2024 7:14 PM CDT [facility] Cocaine Metabolites Urine Positive(A) Negative : < 300 ng/mL 12/30/2024 7:14 PM CDT [facility] Comment: Positive urine cocaine metabolites screening results should be confirmed by another generally accepted non-immunological method such as gas chromatography or mass spectrometry. Phencyclidine Screen Urine Negative Negative : < 25 ng/ml 12/30/2024 7:14 PM CDT [facility] Cannabinoids Screen Urine Positive(A) Negative : <50 ng/mL 12/30/2024 7:14 PM CDT [facility] Comment:Positive urine canna binoids (THC) screening results should be confirmed by another generally accepted non-immunological method such as gas chromatography or mass spectrometry. Methadone Screen Urine Negative Negative : < 300 ng/mL 12/30/2024 7:14 PM CDT [facility] Fentanyl Screen Urine Negative Negative : <1.5 ng/mL 12/30/2024 7:14 PM T [facility] Urine URINE / Unknown Collection / Unknown 12/30/2024 6:44 PM CDT 12/30/2024 6:48 PM CDT [facility] - 12/30/2024 7:14 PM CDT The Urine Toxicology Screening Panel does not screen for Propoxyphene, Meprobamate, Carisoprodol, Trazodone, poiq-huv-urdgarw medications and/or volatiles (Acetone, Isopropanol, Methanol or Ethylene Glycol). Ethanol, Salicylate, Acetaminophen, Tricyclic Antidepressants and several therapeutic drugs may be individually assayed in serum or plasma specimen. Toxicology testing by the [facility] is an aid to medical diagnosis and treatment of patients. No documented chain of custody was maintained. Results are intended to be used for clinical purposes only. us Sharon Zavala ROOF CEMENT AND PAINT MAKER HELPER-TECHNICAL BUSINESS ANALYST LAB - URINE CHEMISTR Y ORDERABLES Final Result [facility] [address] [place] [id number], [facility] [phone] * SARS-COV-2 (COVID-19) RAPID (12/30/2024 6:43 PM CDT) COVID-19 PCR Not detected Not detected 12/31/19 25 7:31 PM CDT [facility] Microbiology SPECIMEN FROM NASOPHARYNGEAL STRUCTURE / Unknown Collection / Unknown 12/30/2024 6:43 PM CDT 12/30/2024 6:48 PM CDT Narrative [facility] - 12/30/2024 7:31 PM CDT The [employer] Xpert Xpress SARS-COV-2 has been authorized by [...] assay are available upon request. Sharon Zavala ROOF CEMENT AND PAINT MAKER HELPER-TECHNICAL BUSINESS ANALYST LAB - MICROBIOLOGY O RDERABLES Final Result [facility] [address] [place] [address], [facility] [phone] * SYPHILIS ANTIBODY CASCADING REFLEX (12/30/2024 6:43 PM CDT) Treponema pallidum Antibody Non-react audrey Non-react audrey 12/30/2024 7:33 PM CDT [facility] Comment: No Laboratory evidence of syphilis infection. Note: Circulating antibodies may be low or undetectable in early infection. If recent exposure is suspected, re-draw sample in 2-4 weeks and repeat testing. Blood BLOOD SPECIMEN / Unknown Venipuncture / Unknown 12/30/2024 6:43 PM CDT 12/30/2024 6:48 PM CDT us Sharon Sadlern Sally ROO[employer]EMENT [employer] PAINT MAKER HELPER-TECHNICAL BUSINESS ANALYST LAB - SEROLOGY ORDER JOSE Final Result [facility] [address] [place] [address], [facility] [phone] * (ABNORMAL) CBC W AUTO DIFFERENTIAL (12/30/2024 6:43 PM CDT) Only the most recent of2 resultswithin the time period is included. WBC 11.6(H) 4.0 - 10.7 x10E9/L 12/30/2024 7:37 PM [facility] RBC Count 5.04 4.30 - 5.80 x10E12/L 12/30/2024 7:37 PM [facility] Hemoglobin 15.2 13.3 - 17.5 g/dL 12/30/2024 7:37 PM [facility] Hematocrit 43.3 38.7 - 51.1 % 12/30/2024 7:37 PM [facility] MCV 85.9 80.0 - 98.0 fL 12/30/2024 7:37 PM [facility] MCH 30.2 26.7 - 33.6 pg 12/30/2024 7:37 PM [facility] MCHC 35.1 31.7 - 36.3 g/dL 12/30/2024 7:37 PM [facility] RDW-CV 14.1 11.3 - 14.8 % 12/30/2024 7:37 PM [facility] Platelet Count 293 150 - 420 x10E9/L 12/30/2024 7:37 PM [facility] MPV 10.9 7.8 - 11.4 fL 12/30/2024 7:37 PM [facility] Neutrophil % 79.8(H) 41.0 - 74.0 % 12/30/2024 7:37 PM [facility] Lymphocyte % 11.0(L) 17.0 - 47.0 % 12/30/2024 7:37 PM [facility] Monocyte % 8.1 3.0 - 11.0 % 12/30/2024 7:37 PM CDT [facility] Eosinophil % 0.7 0.0 - 7.0 % 12/30/2024 7:37 PM CDT [facility] Basophil % 0.2 0.0 - 1.6 % 12/30/2024 7:37 PM CDT [facility] Immature Granulocytes % 0.2 0.0 - 1.0 % 12/30/2024 7:37 PM T [facility] Neutrophil Absolute 9.29(H) 1.60 - 7.50 x10E9/L 12/30/2024 7:37 PM CDT [facility] Lymphocyte Absolute 1.28 1.00 - 4.40 x10E9/L 12/30/2024 7:37 PM [facility] Monocyte Absolute 0.94 0.15 - 1.00 x10E9/L 12/30/2024 7:37 PM T [facility] Eosinophil Absolute 0.08 0.00 - 0.60 x10E9/L 12/30/2024 7:37 PM T [facility] Basophil Absolute 0.02 0.00 - 0.13 x10E9/L 12/30/2024 7:37 PM [facility] Blood BLOOD SPECIMEN / Unknown Venipuncture / Unknown 12/30/2024 6:43 PM CDT 12/30/2024 6:48 PM CDT us Sharon Zavala ROO[employer] MAKER HELPER-TECHNICAL BUSINESS ANALYST LAB - HEMATOLOGY ORD ERABLES Final Result [facility] [address] [place] [address], [facility] [phone] * (ABNORMAL) COMPREHENSIVE METABOLIC PANEL (12/30/2024 6:43 PM CDT) Only the most recent of2 resultswithin the time period is included. BUN 28(H) 7 - 26 mg/dL 12/30/2024 7:18 PM CDT [facility] Creatinine 0.79 0.71 - 1.16 mg/dL 12/30/2024 7:18 PM [facility] Sodium 140 136 - 145 mmol/L 12/30/2024 7:18 PM [facility] Potassium 3.8 3.5 - 4.5 mmol/L 12/30/2024 7:18 PM [facility] Chloride 105 98 - 107 mmol/L 12/30/2024 7:18 PM [facility] CO2 22 22 - 29 mmol/L 12/30/2024 7:18 PM [facility] Glucose 125(H) 70 - 99 mg/dL 12/30/2024 7:18 PM [facility] Calcium 10.2 8.4 - 10.2 mg/dL 12/30/2024 7:18 PM [facility] Protein Total 8.2 6.0 - 8.3 g/dL 12/30/2024 7:18 PM [facility] Albumin 5.1(H) 3.4 - 5.0 g/dL 12/30/2024 7:18 PM [facility] Bilirubin Total 0.4 0.2 - 1.2 mg/dL 12/30/2024 7:18 PM [facility] Alkaline Phosphatase 56 40 - 150 U/L 12/30/2024 7:18 PM [facility] ALT 39 5 - 55 U/L 12/30/2024 7:18 PM [facility] AST 72(H) 5 - 34 U/L 12/30/2024 7:18 PM [facility] Anion Gap 13 6 - 16 12/30/2024 7:18 PM [facility] BUN/Creatinine Ratio 35(H) 7 - 23 12/30/2024 7:18 PM [facility] Osmolality Calculated 297(H) 275 - 295 mOsm/kg 12/30/2024 7:18 PM [facility] Albumin/Globulin Ratio 1.6 1.1 - 2.3 12/30/2024 7:18 PM [facility] eGFR by CKD-EPI >90 >=90 mL/min/1.7 3 m2 12/30/2024 7:18 PM [facility] Comment:Estimated Glomerular Filtration Rate (eGFR) calculated using the CKD-EPI Creatinine Equation (2020), per the National Kidney Foundation and [place] Society of Nephrology recommendations. Blood BLOOD SPECIMEN / Unknown Venipuncture / Unknown 12/30/2024 6:43 PM CDT 12/30/2024 6:48 PM CDT Sharon Zavala ROOF CEMENT AND PAINT MAKER HELPER-[facility] LAB - CHEMISTRY ORDE RABLES Final Result [address] [address], [facility] [phone] * VITAMIN B12 (12/30/2024 6:43 PM CDT) Vitamin B12 603 213 - 816 pg/mL 12/30/2024 10:44 PM CDT [facility] Blood BLOOD SPECIMEN / Unknown Venipuncture / Unknown 12/30/2024 6:43 PM CDT 12/30/2024 6:48 PM CDT Sharon Zavala ROOF CEMENT AND PAINT MAKER [facility] LAB - CHEMISTRY ORDE RABLES Final Result Performing Organization Address City/[facility]/ZIP Co de Phone Number [address] [address], [facility] [phone] * ALCOHOL ETHYL BLOOD (12/30/2024 6:43 PM CDT) Ethanol (mg/dL) <10 <10 mg/dL 7:18 PM CDT [facility] Ethanol Calculated (g/dL) <0.010 <=0.010 g/dL 12/30/2024 7:18 PM CDT [facility] Blood BLOOD SPECIMEN / Unknown Venipuncture / Unknown 12/30/2024 6:43 PM CDT 12/30/2024 6:48 PM CDT Narrative [facility] - 12/30/2024 7:18 PM CDT Ethanol Interp <10: None Detected. Depression of INVESTOR RELATIONS DIRECTOR: >100 mg/dl Potentially Critical: >250 mg/dl Potentially Fatal >400 mg/dl Ethanol in the patient's blood will contribute to the osmolar gap. Ethanol's contribution to the osmolar gap can be estimated by dividing the concentration of ethanol in mg/dL by 4.6. This test is for clinical use only and does not equal a CED for legal purposes. Sharon Fonsecaaly ROOF CEMENT AND PAINT MAKER HELPER-[facility] LAB - CHEMISTRY ORDE RABLES Final Result Performing Organization Address City/[facility]/ZIP Co de Phone Number [facility] [address] [place] [address], [facility] [phone] * TSH REFLEX FREE T4 (12/20/2024 6:37 AM CDT) TSH 2.156 0.350 - 4.940 uIU/mL 12/20/2024 7:32 AM CDT [facility] Blood BLOOD SPECIMEN / Unknown Venipuncture / Unknown 12/20/2024 6:37 AM CDT 12/20/2024 6:53 AM CDT Saniya Dillard ROOF CEMENT AND PAINT MAKER [facility] - CHEMISTRY ORDERABL ES Final Result Performing Organization Address [facility] Co de Phone Number [facility] [address] [place] [address] * HEMOGLOBIN A1C (12/20/2024 6:37 AM CDT) Hemoglobin A1c 5.4 <5.7 % 12/20/2024 7:33 AM CDT [facility] Estimated Average Glucose 108 mg/dL 12/20/2024 7:33 AM CDT [facility] Blood BLOOD SPECIMEN / Unknown Venipuncture / Unknown 12/20/2024 6:37 AM CDT 12/20/2024 6:53 AM CDT Narrative [facility] - 12/20/2024 7:33 AM CDT HbA1c Interpretation: Normal: < 5.7% Pre-diabetes: 5.7-6.4% Diabetes: Equal to or greater than 6.5% Test results diagnostic of diabetes should be repeated for confirmation. Treatment target values recommended by ADA and other clinical organizations should be used to evaluate metabolic control in patients. This test should not replace glucose testing for patients with Type 1 diabetes, pediatric patients, or women. Falsely low HbA1c results may be observed in patients with clinical conditions that shorten erythrocyte life span or decrease mean erythrocyte age such as the presence of unstable hemoglobin variants, elevated hemoglobin F level or other causes of hemolytic anemia. HbA1c may not accurately reflect glycemic control when clinical conditions that affect erythrocyte survival are present. Severe Iron deficiency anemia may yield falsely high results. Hemoglobin A1c assay should not be used to diagnose or monitor diabetes in patients with malignancy, recent blood transfusion, chronic kidney or liver disease. This method may yield falsely low results when hemoglobin (HbF) exceeds 5% in the specimen. The [employer] Alinity assay for the measurement of HbA1c is a National Glycohemoglobin Standardization Program (NGSP) certified method. Saniya Dillard [facility]NJEW[facility] LAB - CHEMISTRY ORDERABL ES Final Result Performing Organization Address City/[facility] Co de Phone Number [facility] [address] [place] [phone] * LIPID PROFILE (12/20/2024 6:37 AM CDT) Cholesterol 179 <200 mg/dL 12/20/2024 7:17 AM CDT [facility] Triglycerides 52 <150 mg/dL 12/20/2024 7:17 AM CDT [facility] HDL Cholesterol 59 >40 mg/dL 7:17 AM CDT [facility] LDL Calculated 110 <130 mg/dL 12/20/2024 7:17 AM CDT [facility] Comment:LDL is calculated us ing the Friedewald equation. VLDL Calculated 10 <=30 mg/dL 7:17 AM CDT [facility] Chol HDL Ratio 3.0 <4.5 12/20/2024 7:17 AM CDT [facility] LDL/HDL Ratio 1.9 <5.0 12/20/2024 7:17 AM CDT [facility] Blood BLOOD SPECIMEN / Unknown Venipuncture / Unknown 12/20/2024 6:37 AM CDT 12/20/2024 6:53 AM CDT Saniya Dillard [facility] - CHEMISTRY ORDERABL ES Final Result Performing Organization Address City/[facility]/ZIP Co de Phone Number [facility] [address] [place] [address] from Last 3 Months Insurance [employer] MEDICAID - OUT OF STATE out of State Advance Directives * Full Code (Latest Code Status on File) Date Activated Date Inactivated Comments 12/18/2024 9:31 AM 12/22/2024 1:51 PM Care Teams Reclamation Worker Relationship Specialty Start Date End Date Provider, No Pcp PCP - General 12/18/24
--- OUTSIDE RECORDS SUMMARY | 2024-12-31 13:09 | XMS_ITS | Clinical Summary ---
Author Organization [facility] re Address [address] [place] [address] Phone Care Team Providers Care Lpc Name Role Phone Unavailable Primary Care Provider Unavailabl e Allergies Active Allergy Reactions Criticality Noted Date Comments Haloperidol Lactate Other (See Comments) 2024 Lose motor movements Medications ARIPiprazole (ABILIFY) 5 mg tablet Take 5 mg by mouth daily. Active FLUoxetine (PROzac) 20 mg capsule Take 20 mg by mouth daily. Active Encounters Date Type Department Care Team Description 10/04/2024 12:04 AM CDT - 10/04/2024 6:14 AM CDT Emergency [facility] Emergency Department [place] [address] Jorge Nagel PA Suicidal ideations (Primary Dx); Hypokalemia Discharge Disposition: [facility] from Last 3 Months Social History Tobacco Use Types Packs/Day Years Used Date Smoking Tobacco: Every Day Cigarettes Smokeless Tobacco: Never Tobacco Cessation:Ready to Q uit: Not Asked; Counseling Given: Not Answered Alcohol Use Standard Drinks/Week Comments Yes 0 (1 standard drink = 0.6 oz pur e alcohol) socially Feeling Safe Answer Date Recorded Are you in a relationship wi th someone who hurts you emotionally and/or physically? No 10/04/2024 Sex and Gender Information Value Date Recorded Sex Assigned at Not on file Legal Sex Male 9:47 AM CDT Gender Identity Not on file Sexual Orientation Not on file Last Filed Vital Signs Vital Sign Reading Time Taken Comments Blood Pressure 102/68 10/04/2024 6:13 AM CDT Pulse 69 09/27/2024 11:00 PM CDT Temperature 36.6 C (97.8 F) 10/04/2024 6:13 AM CDT Respiratory Rate 18 10/04/2024 6:13 AM CDT Oxygen Saturation 95% 10/04/2024 6:13 AM CDT Inhaled Oxygen Concentration - - Weight 65.8 kg (145 lb) 10/04/2024 12:06 AM CDT Height 170.2 cm (5' 7) 10/04/2024 12:06 AM CDT Body Mass Index 22.71 10/04/2024 12:06 AM CDT Plan of Treatment Health Maintenance Due Date Last Done Comments HPV VACCINES (1 - Male 3-dose series) 08/04/2003 DTAP/TDAP/TD VACCINES (1 - Tdap) 08/04/2007 HEPATITIS B VACCINES (1 of 3 - 19+ 3-dose series) 07/10 INFLUENZA VACCINE (#1) 2024 Procedures Procedure Name Priority Date/Time Associated Diagnosis Comments POC BNP Stat 10/04/2024 12:57 AM CDT URINALYSIS W/REFLEX MICROSCOPIC Stat 10/04/2024 12:50 AM CDT DRUG SCREEN, URINE Stat 10/04/2024 12 :50 AM CDT POC TROPONIN Stat 10/04/2024 12:46 AM CDT D-DIMER Stat 10/04/2024 12:33 AM CDT MAGNESIUM LEVEL Stat 10/04/2024 12:33 AM CDT ETHANOL LEVEL Stat 10/04/2024 12:33 AM CDT COMPREHENSIVE METABOLIC PANEL Stat 10/04/2024 12:33 AM CDT CBC WITH DIFFERENTIAL Stat 10/04/2024 12:33 AM CDT PULSE OXIMETRY, CONTINUOUS Stat 10/04/2024 12:19 AM CDT from Last 3 Months Results * POC BNP (10/04/2024 12:57 AM CDT) BNP POC <15 <=100 pg/mL 10/04/2024 12:57 AM CDT [facility] Blood 10/04/2024 12:5 7 AM CDT 10/04/2024 12:59 AM CDT us Jorge NANCE POINT OF CARE TESTING Final Res ult [facility] CLIA #[id number] [address] [facility]. [address] [place] [address] * (ABNORMAL) DRUG SCREEN, URINE (10/04/2024 12:50 AM CDT) [facility] CANNABINOIDS QUAL, URINE Presumptive Positive(A) Negative 10/04/2024 12:59 AM CDT [facility] PCP QUAL, URINE Negative Negative 12:59 AM CDT [facility] COCAINE QUAL URINE Negative Negative 2024 12:59 AM CDT [facility] METHAMPHETAMINE QUAL, URINE Negative Negative 10/04/2024 12:59 AM CDT [facility] OPIATE QUAL, URINE Negative Negative 2024 12:59 AM CDT [facility] AMPHETAMINE QUAL, URINE Negative Negative 10/04/2024 12:59 AM CDT [facility] BENZODIAZEPINE QUAL, URINE Presumptive Positive(A) Negative 10/04/2024 12:59 AM CDT [facility] TRICYCLICS QUAL, URINE Negative Negative 10/04/2024 12:59 AM CDT [facility] METHADONE QUAL, URINE Negative Negative 10/04/2024 12:59 AM CDT [facility] BARBITURATE QUAL, URINE Negative Negative 10/04/2024 12:59 AM CDT [facility] OXYCODONE QUAL, URINE Negative Negative 10/04/2024 12:59 AM CDT [facility] Urine URINE SPECIMEN OBTAINED BY CLEAN CATCH PROCEDURE / Unknown Collection / Unknown 10/04/2024 12:50 AM CDT 10/04/2024 12:50 AM CDT [facility] - 10/04/2024 12:59 AM CDT This test is a qualitative screen. The presumptive positive results should not be used for legal purposes. If confirmation of results is desired, the lab must be contacted without delay. Drug Screening Threshold Amphetamines 500 ng/mL Barbiturates 200 ng/mL Benzodiazepines 150 ng/mL Cocaine Metabolites 150 ng/mL Methamphetamine 500 ng/mL Methadone 200 ng/mL Opiates 100 ng/mL Oxycodone 100 ng/mL Phencyclidine 25 ng/mL THC Cannabinoids 50 ng/mL Tricyclic Antidepressants 300 ng/mL Jorge Nagel PA URINE ORDERABLES Final Result [facility] CLIA #[id number] [address] [facility]. [address] [place] [address] * (ABNORMAL) URINALYSIS WITH REFLEX MICROSCOPIC (10/04/2024 12:50 AM CDT) COLOR UA Yellow Pale to Dark Yellow 10/04/2024 12:52 AM T [facility] CLARITY UA Clear Clear 10/04/2024 12:52 AM T [facility] SPECIFIC GRAVITY UA >=1.030(H) 1.003 - <1.030 10/04/2024 12:52 AM T [facility] PH UA 6.0 5.0 - 8.0 10/04/2024 12:52 AM T [facility] LEUKOCYTE ESTERASE UA Negative Negative 10/04/2024 12:52 AM T [facility] NITRITE UA Negative Negative 10/04/2024 12:52 AM T [facility] PROTEIN UA Negative Negative 10/04/2024 12:52 AM T [facility] GLUCOSE UA Negative Negative 10/04/2024 12:52 AM T [facility] KETONES UA Negative Negative 10/04/2024 12:52 AM CDT [facility] UROBILINOGEN UA 0.2 <2.0 mg/dL 12:52 AM CDT [facility] BILIRUBIN UA Negative Negative 10/04/2024 12:52 AM CDT [facility] BLOOD UA Negative Negative 10/04/2024 12:52 AM CDT [facility] Urine URINE SPECIMEN OBTAINED BY CLEAN CATCH PROCEDURE / Unknown Collection / Unknown 10/04/2024 12:50 AM CDT 10/04/2024 12:50 AM CDT Jorge NANCE URINE ORDERABLES Final Result [facility] CLIA #[id number] [address] [facility]. [address] [place] [address] * POC TROPONIN (10/04/2024 12:46 AM CDT) TROPONIN I POC 0.00 0.00 - 0.06 ng/mL 10/04/2024 12:46 AM CDT [facility] Blood 10/04/2024 12:4 6 AM CDT 10/04/2024 12:59 AM CDT us Jorge NANCE POINT OF CARE TESTING Final Res ult [facility] CLIA #[id number] [address] [facility]. [address] [place] [address] * CBC WITH DIFFERENTIAL (10/04/2024 12:33 AM CDT) WBC 8.9 4.0 - 11.0 K/uL 10/04/2024 12:44 AM CDT [facility] RBC 4.86 4.40 - 5.90 M/uL 10/04/2024 12:44 AM [facility] HEMOGLOBIN 14.2 13.9 - 18.0 g/dL 10/04/2024 12:44 AM [facility] HEMATOCRIT 43.6 40.6 - 52.0 % 10/04/2024 12:44 AM [facility] MCV 89.7 82.3 - 97.9 fL 10/04/2024 12:44 AM [facility] MCH 29.2 28.1 - 33.5 pg 10/04/2024 12:44 AM [facility] MCHC 32.6 32.6 - 35.8 g/dL 10/04/2024 12:44 AM [facility] RDW 14.0 11.5 - 14.5 % 10/04/2024 12:44 AM [facility] RDW-STDEV 45.1 37.0 - 54.0 fL 10/04/2024 12:44 AM [facility] PLATELETS 268 140 - 450 K/uL 10/04/2024 12:44 AM [facility] MPV 10.6 6.8 - 12.4 fL 10/04/2024 12:44 AM [facility] NEUTROPHILS 75 48 - 77 % 10/04/2024 12:44 AM [facility] LYMPHOCYTES 16 14 - 40 % 10/04/2024 12:44 AM [facility] MONOCYTES 8 4 - 11 % 10/04/2024 12:44 AM [facility] EOSINOPHILS 1 1 - 7 % 10/04/2024 12:44 AM [facility] BASOPHILS 0 0 - 1 % 10/04/2024 12:44 AM [facility] NEUTROPHIL ABSOLUTE 6.72 1.95 - 8.50 K/uL 10/04/2024 12:44 AM [facility] LYMPHOCYTE ABSOLUTE 1.43 0.54 - 4.42 K/uL 10/04/2024 12:44 AM CDT [facility] MONOCYTE ABSOLUTE 0.70 0.17 - 1.23 K/uL 10/04/2024 12:44 AM CDT [facility] EOSINOPHIL ABSOLUTE 0.06 0.02 - 0.79 K/uL 10/04/2024 12:44 AM CDT [facility] BASOPHILS ABSOLUTE 0.02 <=0.15 K/uL 10/04/2024 12:44 AM CDT [facility] Blood Venipuncture / Unknown 10/04/2024 12:33 AM CDT 10/04/2024 12:33 AM CDT Jorge NANCE HEMATOLOGY ORDERABLES Final Res ult Performing Organization Address City/[facility]/ZIP Co de Phone Number [facility] CLIA #[id number] [address] [facility]. [address] [place] [address] * D-DIMER (10/04/2024 12:33 AM CDT) D-DIMER QUANT <0.27 <0.50 ug/mL FEU 10/04/2024 2:00 AM CDT [facility] Blood Venipuncture / Unknown 10/04/2024 12:33 AM CDT 10/04/2024 1:37 AM CDT Narrative [facility] - 10/04/2024 2:00 AM CDT D-Dimer assay cutoff value for exclusion of DVT and/or PE is <0.50 ug/mL FEU. Jorge NANCE HEMATOLOGY ORDERABLES Final Res ult [facility] CLIA #[id number] [address] [facility]. [address] [place] [address] * MAGNESIUM LEVEL (10/04/2024 12:33 AM CDT) MAGNESIUM 1.9 1.6 - 2.6 mg/dL 10/04/2024 12:56 AM CDT [facility] Blood Venipuncture / Unknown 10/04/2024 12:33 AM CDT 10/04/2024 12:33 AM CDT Jorge NANCE CHEMISTRY ORDERABLES Final Resu lt Performing Organization Address [facility]/ZIP Co de Phone Number [facility] CLIA #[id number] [address] [facility]. [address] [place] [address] * (ABNORMAL) ETHANOL LEVEL (10/04/2024 12:33 AM CDT) ETHANOL 32.00(H) 0.00 - 10.00 mg/dL 10/04/2024 12:56 AM CDT [facility] ETHANOL % 0.03(H) <=0.00 %w/v 10/04/2024 12:56 AM CDT [facility] Blood Venipuncture / Unknown 10/04/2024 12:33 AM CDT 10/04/2024 12:33 AM CDT Narrative [facility] - 10/04/2024 12:56 AM CDT Chain of Custody Handling was not performed on this specimen. This test will not meet medical-legal requirements. ALCOHOL INTERPRETATION Clinical consideration and professional judgment should be applied to the interpretation of any alcohol test results. Correlations with clinical findings is suggested. Jorge NANCE CHEMISTRY ORDERABLES Final Resu lt Performing Organization Address [facility]/ZIP Co de Phone Number [facility] CLIA #[id number] [address] [facility]. [address] [place] [address] * (ABNORMAL) COMPREHENSIVE METABOLIC PANEL (10/04/2024 12:33 AM T) SODIUM 140 136 - 145 mmol/L 10/04/2024 12:56 AM T [facility] POTASSIUM 3.4(L) 3.5 - 5.1 mmol/L 10/04/2024 12:56 AM T [facility] CHLORIDE 100 98 - 107 mmol/L 10/04/2024 12:56 AM [facility] CO2 27 22 - 29 mmol/L 10/04/2024 12:56 AM [facility] CALCIUM 9.3 8.6 - 10.0 mg/dL 10/04/2024 12:56 AM [facility] BUN 19 6 - 20 mg/dL 10/04/2024 12:56 AM [facility] CREATININE 0.90 0.67 - 1.17 mg/dL 10/04/2024 12:56 AM [facility] GLUCOSE 153(H) 74 - 99 mg/dL 10/04/2024 12:56 AM [facility] TOTAL PROTEIN 7.5 6.6 - 8.7 g/dL 10/04/2024 12:56 AM [facility] ALBUMIN 4.4 3.5 - 5.2 g/dL 10/04/2024 12:56 AM [facility] BILIRUBIN TOTAL 0.2 0.0 - 1.2 mg/dL 10/04/2024 12:56 AM [facility] ALKALINE PHOSPHATASE 50 40 - 129 U/L 10/04/2024 12:56 AM [facility] AST 21 <=41 U/L 10/04/2024 12:56 AM [facility] ALT 17 10 - 50 U/L 10/04/2024 12:56 AM [facility] GFR >60 >=60 mL/min/1.7 3 sq meter 10/04/2024 12:56 AM [facility] Comment:eGFR calculated with 2020 CKD-EPI equation. Vegetarian diet, extremely high or low muscle mass, and may affect results. Cystatin C with Glomerular Filtration Rate is a suitable alternative for these patients. ANION GAP 13 8 - 19 mmol/L 10/04/2024 12:56 AM CDT [facility] Blood Venipuncture / Unknown 10/04/2024 12:33 AM CDT 10/04/2024 12:33 AM CDT us Jorge NANCE CHEMISTRY ORDERABLES Final Resu lt [facility] CLIA #[id number] [address] [place] [address] from Last 3 Months
--- OUTSIDE RECORDS SUMMARY | 2024-12-31 13:09 | XMS_ITS | Encounter Summary ---
Author Organization [facility] Health Address [address] [place] [address] Care Team Providers Care Contact Center Agent Name Role Phone Provider, No Pcp Primary Care Provider Unavailab le Encounter Details Date Type Department Care Team (Latest Contact Info) Description 12/30/2024 Travel Social History Tobacco Use Types Packs/Day Years [...] Recorded Patient Health Questionnaire-2 Score 6 12/18/2024 [facility] Occup[facility] - Occupational Stress [...] any time in the past 12 m [facility], were you homeless or living in a care home (including now)? Yes 12/18/2024 Sex and Gender Information Value Date Recorded Sex Assigned at Not on file Legal Sex Male 12:18 AM CDT Gender Identity Not on file Sexual Orientation Not on file documented as of this encounter Functional Status * Is person deaf or have serious hearing difficulty? Answer Date of Assessment Author No 12/18/2024 9:00 AM Daxa Schultz RN * Is person blind or have serious difficulty seeing? Answer Date of Assessment Author No 12/18/2024 9:00 AM Daxa Schultz RN * Does person have serious difficulty walking/climbing stairs? Answer Date of Assessment Author No 12/18/2024 9:00 AM Daxa Schultz RN * Does person have difficulty dressing/bathing? Answer Date of Assessment Author No 12/18/2024 9:00 AM Daxa Schultz RN * Does person have difficulty doing errands alone? Answer Date of Assessment Author No 12/18/2024 9:00 AM Daxa Schultz RN documented as of this encounter Mental Status * Does person have difficulty concentrating/remembering/making decisions? Answer Entry Date Author No 12/18/2024 9:00 AM Daxa Schultz RN documented in this encounter Plan of Treatment Not on file documented as of this encounter Visit Diagnoses Not on filedocumented in this encounter Additional Health Concerns Infection Onset Date Last Indicated Resolved Time COVID-19 Under Investigation 12/30/2024 12/30/2024 12/30/2024 7:31 PM CDT documented as of this encounter Care Teams Contact Center Agent Relationship Specialty Start Date End Date Provider, No Pcp PCP - General 12/18/24 documented as of this encounter
[2024-12-31 13:12] LABS: SARS-CoV-2 RNA PCR Negative (Negative)
--- NOTE | 2024-12-31 13:26 | ED.GENADULT ---
HPI - General Adult General Chief complaint: Psychiatric Symptoms Stated complaint: suicidal ideations Time Seen by Provider: 12/31/24 12:09 History of Present Illness HPI narrative: Patient 34-year-old gentleman presents emergency department with chief complaint of suicidal ideation patient reports that he has been having feelings of depression and loneliness reports that he has had thoughts of hurting himself reports he last tried to harm himself when he was in high school patient reported that he used cocaine yesterday pain the patient reports that he is hiking [place] Related Data Home Medications ?Medication ?Instructions ?Recorded ?Confirmed ?Last Taken ?Type aripiprazole 5 mg tablet (Abilify) 5 mg PO DAILY 12/31/24 12/31/24 Unknown History fluoxetine 20 mg capsule (Prozac) 20 mg PO DAILY 12/31/24 12/31/24 Unknown History rivaroxaban 20 mg tablet (Xarelto) 20 mg PO DAILY 12/31/24 12/31/24 Unknown History Allergies Allergy/AdvReac Type Severity Reaction Status Date / Time haloperidol (From Haldol) AdvReac Intermediate Other Verified 12/31/24 12:08 Review of Systems Review of Systems: A 10 system review of systems was completed on the patient and is negative except for what is stated in the HPI. Nursing and ancillary documentation was reviewed. [facility] Social History Social History Substance use type: marijuana and crack/cocaine Exam Narrative: GENERAL: Well-appearing, well-nourished, and in no acute distress. HEAD: Normocephalic, atraumatic. EYES: PERRLA and EOMI. ENT: Nares clear, no rhinorrhea or epistaxis. Mucous membranes moist. NECK: Supple. CHEST: Clear to auscultation. No respiratory distress. HEART: Regular rate and rhythm. No murmur heard. Normal peripheral pulses. ABDOMEN: Soft, nontender, nondistended, normal active bowel sounds. EXTREMITIES: Normal range of motion. No edema. SKIN: Warm, dry, no rash. NEURO: No focal deficits. Alert and oriented x3. PSYCH: Normal mood and affect. Course Vital Signs Vital signs: Vital Signs Temperature 36.7 C 12/31/24 12:02 Pulse Rate 105 H 12/31/24 12:02 Respiratory Rate 16 12/31/24 12:02 Blood Pressure 140/88 12/31/24 12:02 Pulse Oximetry 98 12/31/24 12:02 Oxygen Delivery Room Air 12/31/24 12:02 Temperature 36.7 C 12/31/24 12:02 Pulse Rate 105 H 12/31/24 12:02 Respiratory Rate 16 12/31/24 12:02 Blood Pressure 140/88 12/31/24 12:02 Pulse Oximetry 98 12/31/24 12:02 Oxygen Delivery Room Air 12/31/24 12:02 Medical Decision Making MDM Narrative Medical decision making narrative: Differential diagnosis includes she is substitute is mood disorder, depression, Laboratory studies were obtained showed normal CBC CMP showed no acute abnormalities urine drug screen is positive for cocaine and cannabinoids the patient is negative for COVID ETOH is negative Patient is medically clear for psychiatric evaluation referral transferred admission Patient was seen by the mental health screen years and they are looking a voluntary placement for the patient The patient was accepted [facility] Vital Signs Vital Signs: Vital Signs Temperature 36.7 C 12/31/24 12:02 Pulse Rate 105 H 12/31/24 12:02 Respiratory Rate 16 12/31/24 12:02 Blood Pressure 140/88 12/31/24 12:02 Pulse Oximetry 98 12/31/24 12:02 Oxygen Delivery Room Air 12/31/24 12:02 Temperature 36.7 C 12/31/24 12:02 Pulse Rate 105 H 12/31/24 12:02 Respiratory Rate 16 12/31/24 12:02 Blood Pressure 140/88 12/31/24 12:02 Pulse Oximetry 98 12/31/24 12:02 Oxygen Delivery Room Air 12/31/24 12:02 Lab Data 12/31/24 12:27 12/31/24 12:26 Labs: Lab Results 12/31/24 12/31/24 12/31/24 Range/Units 12:15 12:26 12:27 WBC 9.2 (4.5-10.0) K/mm3 RBC 5.04 (4.6-6.20) M/mm3 Hgb 14.5 (14.0-18.0) g/dL Hct 44.8 (42.0-52.0) % MCV 88.9 (80-100) fl MCH 28.8 (26-34) pg MCHC 32.4 (32-36) g/dl RDW 14.0 (11.5-14.5) % Plt Count 297 (150-375) k/mm3 MPV 10.3 (7.4-10.4) fl Immature Gran % (Auto) 0.3 (0-0.5) % Neut % (Auto) 65.6 (45.5-73.1) % Lymph % (Auto) 19.8 (18.3-44.2) % Whiteside % (Auto) 11.7 H (2.6-8.5) % Eos % (Auto) 2.2 (0-4.4) % Baso % (Auto) 0.4 (0.2-1.2) % Lymph # (Auto) 1.82 (0.9-3.2) K/mm3 Whiteside # (Auto) 1.1 H (0.1-0.6) K/mm3 Eos # (Auto) 0.2 (0-0.3) K/mm3 Baso # (Auto) 0.0 (0.0-0.1) K/mm3 Abs Immat Gran (auto) 0.03 (0.00-0.031) K/mm3 Absolute Neuts (auto) 6.0 (1.3-6.7) K/mm3 Absolute Nucleated RBC 0.000 (0.0-0.012) K/mm3 Nucleated RBC % 0.0 (0.0-0.2) % Sodium 136 L (137-145) mmol/L Potassium 4.3 (3.4-5.0) mmol/L Chloride 102 (98-107) mmol/L Carbon Dioxide 25 (22-30) mmol/L Anion Gap 9 (4-12) mmol/L BUN 23 H (9-20) mg/dL Creatinine 0.83 (0.7-1.3) mg/dL Estim Creat Clear Calc 79 ml/min Estimated GFR > 60 (59 - ) Glucose 112 H (65-110) mg/dL Calcium 9.6 (8.4-10.2) mg/dL Total Bilirubin 1.0 (0.2-1.3) mg/dL AST 119 H (17-59) U/L ALT 50 (6-50) U/L Alkaline Phosphatase 63 (38-126) U/L Total Protein 8.4 H (6.3-8.2) g/dL Albumin 4.8 (3.5-5.1) g/dL TSH 2.060 (0.465-4.680) uIU/mL Urine Color Dark yellow (Yellow) Urine Appearance Clear (Clear) Urine pH 5.5 (5.0-9.0) Ur Specific [place] 1.038 H (1.001-1.035) Urine Protein Negative (Negative) mg/dL Urine Glucose (UA) Negative (Negative) mg/dL Urine Ketones Trace H (Negative) mg/dL Ur Blood (Man) Negative (Negative) Urine Nitrate Negative (Negative) Urine Bilirubin Negative (Negative) Urine Urobilinogen 0.2 (<2.0) mg/dL Leukocyte Esterase Rfl Negative (Negative) SURYA/UL Salicylates < 1.0 L (2-20) mg/dL Urine Opiates Screen Negative (Negative) Urine Methadone Screen Negative (Negative) Acetaminophen < 10 L (10-30) ug/mL Ur Barbiturates Screen Negative (Negative) Ur Phencyclidine Scrn Negative (Negative) Ur Amphetamine Screen Negative (Negative) U Benzodiazepines Scrn Negative (Negative) Urine Cocaine Screen Positive A (Negative) U Cannabinoids Screen Positive A (Negative) Ethyl Alcohol < 10 (<10) mg/dL SARS-CoV-2 RNA (RT-PCR) (Negative) 12/31/24 Range/Units 12:28 WBC (4.5-10.0) K/mm3 RBC (4.6-6.20) M/mm3 Hgb (14.0-18.0) g/dL Hct (42.0-52.0) % MCV (80-100) fl MCH (26-34) pg MCHC (32-36) g/dl RDW (11.5-14.5) % Plt Count (150-375) k/mm3 MPV (7.4-10.4) fl Immature Gran % (Auto) (0-0.5) % Neut % (Auto) (45.5-73.1) % Lymph % (Auto) (18.3-44.2) % Whiteside % (Auto) (2.6-8.5) % Eos % (Auto) (0-4.4) % Baso % (Auto) (0.2-1.2) % Lymph # (Auto) (0.9-3.2) K/mm3 Whiteside # (Auto) (0.1-0.6) K/mm3 Eos # (Auto) (0-0.3) K/mm3 Baso # (Auto) (0.0-0.1) K/mm3 Abs Immat Gran (auto) (0.00-0.031) K/mm3 Absolute Neuts (auto) (1.3-6.7) K/mm3 Absolute Nucleated RBC (0.0-0.012) K/mm3 Nucleated RBC % (0.0-0.2) % Sodium (137-145) mmol/L Potassium (3.4-5.0) mmol/L Chloride (98-107) mmol/L Carbon Dioxide (22-30) mmol/L Anion Gap (4-12) mmol/L BUN (9-20) mg/dL Creatinine (0.7-1.3) mg/dL Estim Creat Clear Calc ml/min Estimated GFR (59 - ) Glucose (65-110) mg/dL Calcium (8.4-10.2) mg/dL Total Bilirubin (0.2-1.3) mg/dL AST (17-59) U/L ALT (6-50) U/L Alkaline Phosphatase (38-126) U/L Total Protein (6.3-8.2) g/dL Albumin (3.5-5.1) g/dL TSH (0.465-4.680) uIU/mL Urine Color (Yellow) Urine Appearance (Clear) Urine pH (5.0-9.0) Ur Specific [place] (1.001-1.035) Urine Protein (Negative) mg/dL Urine Glucose (UA) (Negative) mg/dL Urine Ketones (Negative) mg/dL Ur Blood (Man) (Negative) Urine Nitrate (Negative) Urine Bilirubin (Negative) Urine Urobilinogen (<2.0) mg/dL Leukocyte Esterase Rfl (Negative) SURYA/UL Salicylates (2-20) mg/dL Urine Opiates Screen (Negative) Urine Methadone Screen (Negative) Acetaminophen (10-30) ug/mL Ur Barbiturates Screen (Negative) Ur Phencyclidine Scrn (Negative) Ur Amphetamine Screen (Negative) U Benzodiazepines Scrn (Negative) Urine Cocaine Screen (Negative) U Cannabinoids Screen (Negative) Ethyl Alcohol (<10) mg/dL SARS-CoV-2 RNA (RT-PCR) Negative (Negative) Discharge Plan Discharge Clinical Impression: Depression, Cocaine abuse, Suicide ideation Patient Disposition: Psychiatric Hosp Condition: Stable Patient Language: Kiswahili Prescriptions: No Action fluoxetine [Prozac] 20 mg capsule 20 mg PO DAILY aripiprazole [Abilify] 5 mg tablet 5 mg PO DAILY Xarelto 20 mg tablet 20 mg PO DAILY Rx Instructions: must administer with evening meal Follow-up/Referrals: PHYSICIAN,[employer]INE [employer]PERATOR [Primary Care Provider, Internal Medicine] Time of Disposition: 17:33
[2024-12-31 14:15] LABS: Alanine Aminotransferase 50 U/L (6-50); Albumin Level 4.8 g/dL (3.5-5.1); Alkaline Phosphatase 63 U/L (38-126); Anion Gap 9 mmol/L (4-12); Aspartate Amino Transferase 119 U/L (17-59); Bilirubin,Total 1.0 mg/dL (0.2-1.3); Blood Urea Nitrogen 23 mg/dL (9-20); Calcium 9.6 mg/dL (8.4-10.2); Carbon Dioxide 25 mmol/L (22-30); Chloride 102 mmol/L (98-107); Estimated CRCL calculation 79 ml/min; Estimated Glomerular Filt Rate > 60; Glucose 112 mg/dL (65-110); Potassium 4.3 mmol/L (3.4-5.0); Sodium 136 mmol/L (137-145); Total Protein 8.4 g/dL (6.3-8.2)
[2024-12-31 14:46] LABS: Thyroid Stimulating Hormone 2.060 uIU/mL (0.465-4.680)
--- NOTE | 2024-12-31 20:29 | PC.NURSE ---
Report given to Natasha for transfer. Patient is accepted to room 205-A. Dr. Wolfe is the accepting doctor.
[2024-12-31 22:46] VITALS: BP 116/65; PULSE 68; RESP 18; TEMP 37.1; O2SAT 99
== END 2024-12-31 22:48 ==
PROVIDERS: Emergency Provider Emergency Medicine
DX: R45.851 Suicidal ideations (principal); F32.A Depression, unspecified; F14.10 Cocaine abuse, uncomplicated; Z11.52 Encounter for screening for COVID-19; Z79.899 Other long term (current) drug therapy; Z79.01 Long term (current) use of anticoagulants; I45.10 Unspecified right bundle-branch block; R94.31 Abnormal electrocardiogram [ECG] [EKG]
CPT/HCPCS: 36415; 80053; 80143; 80179; 80307; 81001; 82077; 84443; 85025; 87635; 93005; 99285